=== PATIENT | female | born 1995 | race Caucasian/White ===

== ENCOUNTER → 2019-06-07 | Outpatient (CLI) | payer OTHER ==
--- NOTE | 2019-06-07 16:09 | PCVCIMAG ---
APPROVED REPORT Study performed: 06/07/2019 14:11:24 EXAM: Comprehensive 2D, Doppler, and color-flow Echocardiogram Patient Location: Echo lab Room #: 3Status: routine BSA: 1.57 HR: 104 bpm Rhythm: Tachycardia Other Information Study Quality: Adequate Indications Dyspnea Palpitations Tachycardia 2D Dimensions IVSd: 10.33 (7-11mm)LVOT Diam: 20.00 (18-24mm) LVDd: 34.63 mm PWd: 9.64 (7-11mm)Ascending Ao: 23.99 (22-36mm) LVDs: 25.24 (25-40mm) Left Atrium: 28.01 (27-40mm) Aortic Root: 26.30 mm LV Single Plane 4CH: 65.78 % LV Single Plane 2CH: 65.59 % Biplane EF: 66.1 % Volumes Left Atrial Volume (Systole) Single Plane 4CH: 24.99 mLSingle Plane 2CH: 29.03 mL LA ESV Index: 17.00 mL/m2 Aortic Valve AoV Peak Basilio.: 1.54 m/s AO Peak Gr.: 9.48 mmHgLVOT Max P.64 mmHg LVOT Max V: 1.08 m/s JUAN Vmax: 2.22 cm2 Mitral Valve E/A Ratio: 1.4 MV Decel. Time: 137.17 ms MV E Max Basilio.: 1.08 m/s MV A Basilio.: 0.78 m/s TDI E/Lateral E': 5.14E/Medial E': 7.71 Medial E' Basilio.: 0.14 m/s Lateral E' Basilio.: 0.21 m/s Pulmonary Valve PV Peak Basilio.: 1.23 m/sPV Peak Gr.: 6.09 mmHg Pulmonary Vein P Vein S: 0.62 m/sP Vein A: 0.27 m/s P Vein D: 0.51 m/sP Vein A Dur.: 76.1 msec P Vein S/D Ratio: 1.22 Tricuspid Valve RAP Estimate: 7.00 mmHg Left Ventricle The left ventricle is normal size. There is normal LV segmental wall motion. There is normal left ventricular wall thickness. Left ventricular systolic function is normal. The left ventricular ejection fraction is within the normal range. LVEF is 65%. The left ventricular diastolic function is normal. Right Ventricle The right ventricle is normal size. The right ventricular systolic function is normal. Atria The left atrium size is normal. The right atrium size is normal. Aortic Valve The aortic valve is normal in structure. No aortic regurgitation is present. There is no aortic valvular stenosis. Mitral Valve The mitral valve is normal in structure. There is no mitral valve regurgitation noted. No evidence of mitral valve stenosis. Tricuspid Valve The tricuspid valve is normal in structure. There is no tricuspid valve regurgitation noted. Pulmonic Valve The pulmonary valve is normal in structure. There is no pulmonic valvular regurgitation. Great Vessels The aortic root is normal in size. The ascending aorta is normal in size. IVC is normal in size and collapses >50% with inspiration. Pericardium There is no pericardial effusion. <Conclusion> The left ventricle is normal size. LVEF is 65%. The left ventricular diastolic function is normal. The right ventricle is normal size. The left atrium size is normal. The aortic valve is normal in structure. There is no mitral valve regurgitation noted. There is no tricuspid valve regurgitation noted. The aortic root is normal in size. There is no pericardial effusion.
== END | disposition home or self-care (01) ==
LOC: PCVCIMAG 14:05
PROVIDERS: ATTEND Internal Medicine Cardiovascular Disease
DX: R00.2 Palpitations (principal); R00.0 Tachycardia, unspecified; R06.00 Dyspnea, unspecified; J45.909 Unspecified asthma, uncomplicated; Z87.892 Personal history of anaphylaxis
CPT/HCPCS: 93306